=== PATIENT | female | born 1975 | race Caucasian/White ===

== ENCOUNTER 2019-09-05 21:35 | Inpatient (IN) | payer MEDICAID, OTHER ==
[~2019-09-05] VITALS: Ht 162.6 cm; Wt 94.7 kg
[~2019-09-05 21:35] MED LIST: ASPI81 PO; FURO20 PO; KDUR10 PO; LISI-660 PO; MULT1TAB79 PO; OXYC-601 PO; PANT40TA25 PO; RISP1 PO; TOPI25 PO
[2019-09-05 22:26] LABS: GLUCOSE,POINT OF CARE 137 MG/DL (70-110)
[2019-09-05 22:31] LABS: BASOPHILS % (AUTO) 0.6 % (0.0-2.0); HEMATOCRIT 39.2 % (36-46); LYMPHOCYTES % (AUTO) 39.1 % (22.0-44.0); MEAN CORPUSCULAR HEMOGLOBIN 30.1 pg (26.0-34.0); MEAN CORPUSCULAR HGB CONC 33.1 G/dL (31.0-37.0); MEAN CORPUSCULAR VOLUME 91 fL (80-100); MONOCYTES # (AUTO) 0.3 K/uL (0.1-1.0); MONOCYTES % (AUTO) 5.9 % (2.0-9.0); NEUTROPHILS # (AUTO) 2.7 K/uL (1.8-7.7); NEUTROPHILS % (AUTO) 52.4 % (40.0-70.0); PLATELET COUNT (AUTO) 256 K/uL (150-450); RED BLOOD CELL COUNT(AUTO) 4.31 MIL/uL (4.00-5.20); RED CELL DISTRIBUTION WIDTH 12.5 % (11.5-14.5)
[2019-09-05 22:38] LABS: ANION GAP 10 mmol/L (8-16); CALCIUM, TOTAL 8.6 mg/dL (8.8-10.5); CARBON DIOXIDE 23 mmol/L (22-29); CHLORIDE 105 mmol/L (98-107); CREATININE 0.55 mg/dL (0.60-1.30); GLOMERULAR FILTR. RATE CALC > 60 mL/min (>60); GLUCOSE,RANDOM 146 mg/dL (70-110); POTASSIUM 3.7 mmol/L (3.5-5.1); SODIUM SERUM 138 mmol/L (136-145); UREA NITROGEN, BLOOD 13 mg/dL (7-18)
[2019-09-05 22:49] LABS: ALANINE AMINOTRANSFERASE 108 U/L (12-78); ALBUMIN 3.6 g/dL (3.4-5.0); ALKALINE PHOSPHATASE 110 U/L (46-116); ASPARTATE AMINOTRANSFERASE 174 U/L (15-37); BILIRUBIN,TOTAL 0.3 mg/dL (0.1-1.0); HCG,QUANTITATIVE 1 mIU/mL (0-6); TOTAL PROTEIN, SERUM 7.8 g/dL (6.4-8.2)
[2019-09-06 03:02] LABS: APPEARANCE,URINE CLOUDY (CLEAR); BILIRUBIN,URINE NEGATIVE (NEGATIVE); GLUCOSE, URINE (UA) NEGATIVE (NEGATIVE); KETONES,URINE NEGATIVE (NEGATIVE); LEUKOCYTE ESTERASE ,URINE MODERATE (NEGATIVE); NITRATE,URINE NEGATIVE (NEGATIVE); OCCULT BLOOD,URINE NEGATIVE (NEGATIVE); PH,URINE 5.5 (5.0-8.0); PROTEIN,URINE NEGATIVE (NEGATIVE)
[2019-09-06 03:09] LABS: AMPHET/METH SCREEN,URINE POSITIVE (NEGATIVE); BARBITURATE SCREEN, URINE NEGATIVE (NEGATIVE); BENZODIAZEPINES SCREEN,URINE NEGATIVE (NEGATIVE); CANNABINOID SCREEN,URINE NEGATIVE (NEGATIVE); COCAINE SCREEN,URINE NEGATIVE (NEGATIVE); METHADONE SCREEN, URINE NEGATIVE (NEGATIVE); OPIATE SCREEN,URINE NEGATIVE (NEGATIVE)
[2019-09-06 03:10] LABS: PHENCYCLIDINE SCREEN,URINE NEGATIVE (NEGATIVE)
[2019-09-06 03:26] LABS: BACTERIA,URINE Many /HPF (None Seen); RBC,URINE 0-2 /HPF (0-2); SQUAMOUS EPITHELIAL CELL,UR Few /LPF (None Seen)
[2019-09-06] MEDS ORDERED: CloNIDine HCL 0.1 MG TABLET PO PRN (06:15)
[2019-09-06] MEDS ORDERED: ALBUTEROL SULFATE HFA 90 MCG/PUFF 8 GM INHALER IH PRN (06:15)
[2019-09-06] MEDS ORDERED: MAGNESIUM HYDROXIDE SUSPENSION 30 ML UDCUP PO PRN (06:15)
[2019-09-06] MEDS ORDERED: ACETAMINOPHEN 325 MG TABLET PO PRN (06:15)
[2019-09-06] MEDS ORDERED: LOPERAMIDE HCL 2 MG CAPSULE PO PRN (06:15)
[2019-09-06] MEDS ORDERED: MAG HYDROX/AL HYDROX/SIMETH ES 30 ML SUSPENSION UDCUP PO PRN (06:15)
[2019-09-06] MEDS ORDERED: ONDANSETRON HCL 4 MG TABLET PO PRN (06:15)
[2019-09-06] MEDS ORDERED: PETROLATUM,WHITE 28 GM JELLY TP PRN (06:15)
[2019-09-06] MEDS ORDERED: NICOTINE 14 MG/24 HOUR PATCH TD PRN (06:15)
[2019-09-06] MEDS ORDERED: GuaiFENesin/D-METHORPHAN [SUGAR-FREE] 200-20MG/10 ML SYRUP UDCUP PO PRN (06:15)
[2019-09-06 06:51] LABS: GLUCOSE,POINT OF CARE 86 MG/DL (70-110)
[2019-09-06] MEDS: IBUPROFEN 400 MG TABLET PO PRN ×2 (08:55→20:00)
[2019-09-06 13:44] VITALS: BP 135/79
[2019-09-06] MEDS ORDERED: INFLUENZA VIRUS VACCINE QVS 2019-20 (3YR+)/PF 60 MCG/0.5 ML SYRINGE IM ONE (14:45)
[2019-09-06 16:00] VITALS: BP 104/62
[2019-09-06 20:00] VITALS: BP 124/76
[2019-09-06] MEDS: ZOLPIDEM TARTRATE 10 MG TABLET PO PRN (20:54)
[2019-09-07] VITALS (7 sets, daily range): BP systolic 99–125; BP diastolic 63–86
[2019-09-07 08:31] LABS: THYROID STIMULATING HORMONE 2.67 uIU/mL (0.36-3.74)
[2019-09-07 08:44] LABS: HEMOGLOBIN A1C 6.9 % (4.5-6.2)
[2019-09-07] MEDS: LORazepam 2 MG TABLET PO PRN (11:49)
[2019-09-07] MEDS ORDERED: LORazepam 2 MG TABLET PO PRN (12:15)
[2019-09-07] MEDS: OLANZapine 5 MG TABLET PO SCH (18:29)
[2019-09-08] MEDS ORDERED: LORazepam 2 MG TABLET PO PRN (07:00)
[2019-09-08 08:00] VITALS: BP 110/62
[2019-09-08] MEDS: FOLIC ACID 1 MG TABLET PO SCH (08:28)
[2019-09-08] MEDS: THIAMINE HCL 100 MG TABLET PO SCH (08:28)
[2019-09-08] MEDS: OLANZapine 5 MG TABLET PO SCH ×2 (08:28→17:56)
[2019-09-08] MEDS: LORazepam 2 MG TABLET PO SCH ×4 (08:28→20:34)
[2019-09-08 08:30] VITALS: BP 110/62
[2019-09-08 12:36] VITALS: BP 110/60
[2019-09-08 16:05] VITALS: BP 125/89
[2019-09-08 16:42] VITALS: BP 125/98
[2019-09-09 06:43] VITALS: BP 115/73
[2019-09-09 08:00] VITALS: BP 125/82
[2019-09-09] MEDS: OLANZapine 5 MG TABLET PO SCH ×2 (08:13→16:19)
[2019-09-09] MEDS: LORazepam 2 MG TABLET PO SCH ×4 (08:14→20:27)
[2019-09-09] MEDS: THIAMINE HCL 100 MG TABLET PO SCH (08:14)
[2019-09-09] MEDS: FOLIC ACID 1 MG TABLET PO SCH (08:14)
[2019-09-09 12:41] VITALS: BP 133/71
[2019-09-10 00:42] VITALS: BP 122/63
[2019-09-10] MEDS ORDERED: LORazepam 1 MG TABLET PO PRN (07:00)
[2019-09-10 08:44] VITALS: BP 122/73
[2019-09-10] MEDS: OLANZapine 5 MG TABLET PO SCH ×2 (09:20→16:49)
[2019-09-10] MEDS: FOLIC ACID 1 MG TABLET PO SCH (09:20)
[2019-09-10] MEDS: LORazepam 1 MG TABLET PO SCH ×4 (09:20→20:40)
[2019-09-10] MEDS: THIAMINE HCL 100 MG TABLET PO SCH (09:20)
[2019-09-10 12:11] VITALS: BP 100/65
[2019-09-10] MEDS: BuPROPion HCL XL 150 MG ER TABLET PO SCH (15:13)
[2019-09-10 16:00] VITALS: BP 107/56
[2019-09-10] MEDS: GABAPENTIN 300 MG CAPSULE PO SCH (16:49)
[2019-09-10] MEDS: ZOLPIDEM TARTRATE 10 MG TABLET PO PRN (20:40)
[2019-09-11 06:55] VITALS: BP 118/74
[2019-09-11] MEDS ORDERED: LORazepam 1 MG TABLET PO PRN (07:00)
[2019-09-11 08:00] VITALS: BP 123/74
[2019-09-11] MEDS: BuPROPion HCL XL 150 MG ER TABLET PO SCH (08:28)
[2019-09-11] MEDS: THIAMINE HCL 100 MG TABLET PO SCH (08:28)
[2019-09-11] MEDS: GABAPENTIN 300 MG CAPSULE PO SCH ×2 (08:28→16:05)
[2019-09-11] MEDS: OLANZapine 5 MG TABLET PO SCH ×2 (08:28→16:05)
[2019-09-11] MEDS: FOLIC ACID 1 MG TABLET PO SCH (08:28)
[2019-09-11 13:53] VITALS: BP 115/76
[2019-09-11] MEDS: LORazepam 2 MG TABLET PO PRN (16:33)
[2019-09-11] MEDS: ZOLPIDEM TARTRATE 10 MG TABLET PO PRN (20:30)
[2019-09-11 21:46] VITALS: BP 119/71
[2019-09-12] MEDS: GABAPENTIN 300 MG CAPSULE PO SCH ×2 (08:59→15:50)
[2019-09-12] MEDS: THIAMINE HCL 100 MG TABLET PO SCH (08:59)
[2019-09-12] MEDS: FOLIC ACID 1 MG TABLET PO SCH (08:59)
[2019-09-12] MEDS: BuPROPion HCL XL 150 MG ER TABLET PO SCH (08:59)
[2019-09-12] MEDS: OLANZapine 5 MG TABLET PO SCH ×2 (09:01→15:50)
[2019-09-12 09:10] VITALS: BP 102/63
[2019-09-12] MEDS: IBUPROFEN 400 MG TABLET PO PRN (14:59)
[2019-09-12 15:59] VITALS: BP 112/69
[2019-09-12 16:57] VITALS: BP 106/61
[2019-09-12] MEDS: ZOLPIDEM TARTRATE 10 MG TABLET PO PRN (21:34)
[2019-09-13 01:40] VITALS: BP 108/75
[2019-09-13] MEDS: HALOPERIDOL 5 MG TABLET PO PRN (01:47)
[2019-09-13] MEDS: LORazepam 2 MG TABLET PO PRN ×2 (01:47→16:32)
[2019-09-13] MEDS: THIAMINE HCL 100 MG TABLET PO SCH (08:10)
[2019-09-13] MEDS: OLANZapine 5 MG TABLET PO SCH ×2 (08:10→16:31)
[2019-09-13] MEDS: FOLIC ACID 1 MG TABLET PO SCH (08:10)
[2019-09-13] MEDS: GABAPENTIN 300 MG CAPSULE PO SCH ×2 (08:10→16:32)
[2019-09-13] MEDS: BuPROPion HCL XL 150 MG ER TABLET PO SCH (08:10)
[2019-09-13 20:37] LABS: APPEARANCE,URINE CLOUDY (CLEAR); BILIRUBIN,URINE NEGATIVE (NEGATIVE); GLUCOSE, URINE (UA) NEGATIVE (NEGATIVE); KETONES,URINE NEGATIVE (NEGATIVE); LEUKOCYTE ESTERASE ,URINE SMALL (NEGATIVE); NITRATE,URINE POSITIVE (NEGATIVE); OCCULT BLOOD,URINE NEGATIVE (NEGATIVE); PROTEIN,URINE NEGATIVE (NEGATIVE); UROBILINOGEN,URINE 0.2 mg/dL (<=1.0)
[2019-09-13] MEDS: ZOLPIDEM TARTRATE 10 MG TABLET PO PRN (20:57)
[2019-09-13 21:07] LABS: BACTERIA,URINE Many /HPF (None Seen); RBC,URINE None Seen /HPF (0-2)
[2019-09-13 21:08] LABS: AMORPHOUS SEDIMENT,UR Moderate /LPF (None Seen); SQUAMOUS EPITHELIAL CELL,UR Few /LPF (None Seen); WBC,URINE 0-2 /HPF (0-5)
[2019-09-13 22:32] VITALS: BP 99/62
[2019-09-14] MEDS: LORazepam 2 MG TABLET PO PRN ×2 (00:34→22:01)
[2019-09-14] MEDS: HALOPERIDOL 5 MG TABLET PO PRN ×2 (00:34→22:01)
[2019-09-14 00:36] VITALS: BP 110/76
[2019-09-14] MEDS: THIAMINE HCL 100 MG TABLET PO SCH (09:04)
[2019-09-14] MEDS: GABAPENTIN 300 MG CAPSULE PO SCH ×2 (09:04→16:52)
[2019-09-14] MEDS: FOLIC ACID 1 MG TABLET PO SCH (09:04)
[2019-09-14] MEDS: BuPROPion HCL XL 150 MG ER TABLET PO SCH (09:04)
[2019-09-14] MEDS: OLANZapine 5 MG TABLET PO SCH ×2 (09:04→16:52)
[2019-09-14 13:04] VITALS: BP 115/60
[2019-09-14] MEDS: TraZODone HCL 50 MG TABLET PO SCH (20:14)
[2019-09-14] MEDS: CIPROFLOXACIN HCL 500 MG TABLET PO SCH (21:54)
[2019-09-14 22:18] VITALS: BP 118/68
[2019-09-14 22:24] VITALS: BP 110/68
[2019-09-15] MEDS: GABAPENTIN 300 MG CAPSULE PO SCH ×2 (08:18→16:20)
[2019-09-15] MEDS: BuPROPion HCL XL 150 MG ER TABLET PO SCH (08:18)
[2019-09-15] MEDS: FOLIC ACID 1 MG TABLET PO SCH (08:18)
[2019-09-15] MEDS: THIAMINE HCL 100 MG TABLET PO SCH (08:18)
[2019-09-15] MEDS: OLANZapine 5 MG TABLET PO SCH ×2 (08:18→16:20)
[2019-09-15] MEDS: CIPROFLOXACIN HCL 500 MG TABLET PO SCH ×2 (09:11→17:03)
[2019-09-15 09:34] VITALS: BP 111/66
[2019-09-15] MEDS: DOCUSATE SODIUM 100 MG CAPSULE PO PRN (16:20)
[2019-09-15] MEDS: IBUPROFEN 400 MG TABLET PO PRN (16:20)
[2019-09-15] MEDS: LORazepam 2 MG TABLET PO PRN ×2 (16:20→20:19)
[2019-09-15 16:21] VITALS: BP 115/68
[2019-09-15 17:53] VITALS: BP 139/79
[2019-09-15] MEDS: TraZODone HCL 50 MG TABLET PO SCH (20:19)
[2019-09-15] MEDS: HALOPERIDOL 5 MG TABLET PO PRN (23:08)
[2019-09-16 08:49] VITALS: BP 112/71
[2019-09-16] MEDS: THIAMINE HCL 100 MG TABLET PO SCH (09:24)
[2019-09-16] MEDS: OLANZapine 5 MG TABLET PO SCH ×2 (09:24→16:16)
[2019-09-16] MEDS: BuPROPion HCL XL 150 MG ER TABLET PO SCH (09:24)
[2019-09-16] MEDS: CIPROFLOXACIN HCL 500 MG TABLET PO SCH ×2 (09:24→16:16)
[2019-09-16] MEDS: FOLIC ACID 1 MG TABLET PO SCH (09:24)
[2019-09-16] MEDS: GABAPENTIN 300 MG CAPSULE PO SCH ×2 (09:25→16:16)
[2019-09-16] MEDS: LORazepam 2 MG TABLET PO PRN (14:00)
[2019-09-16 17:09] VITALS: BP 118/79
[2019-09-16] MEDS: TraMADol HCL 50 MG TABLET PO PRN (17:16)
[2019-09-16] MEDS ORDERED: TEMAZEPAM 15 MG CAPSULE PO SCH (21:00)
[2019-09-17 01:40] VITALS: BP 109/75
[2019-09-17] MEDS: LORazepam 2 MG TABLET PO PRN ×2 (01:42→09:23)
[2019-09-17] MEDS: HALOPERIDOL 5 MG TABLET PO PRN ×2 (03:18→22:40)
[2019-09-17 08:52] VITALS: BP 121/81
[2019-09-17] MEDS: OLANZapine 5 MG TABLET PO SCH ×2 (09:17→16:05)
[2019-09-17] MEDS: THIAMINE HCL 100 MG TABLET PO SCH (09:17)
[2019-09-17] MEDS: CIPROFLOXACIN HCL 500 MG TABLET PO SCH ×2 (09:17→16:05)
[2019-09-17] MEDS: BuPROPion HCL XL 150 MG ER TABLET PO SCH (09:17)
[2019-09-17] MEDS: FOLIC ACID 1 MG TABLET PO SCH (09:17)
[2019-09-17] MEDS: GABAPENTIN 300 MG CAPSULE PO SCH ×2 (09:17→16:05)
[2019-09-17] MEDS: DICLOFENAC SODIUM 1% 100 GM GEL [2GM] TP PRN ×2 (09:24→21:19)
[2019-09-17] MEDS: BusPIRone HCL 10 MG TABLET PO SCH ×2 (11:31→16:05)
[2019-09-17 16:00] VITALS: BP 111/63
[2019-09-17 20:16] VITALS: BP 128/88
[2019-09-17] MEDS: IBUPROFEN 400 MG TABLET PO PRN (20:18)
[2019-09-17] MEDS: DOCUSATE SODIUM 100 MG CAPSULE PO PRN (20:21)
[2019-09-17] MEDS ORDERED: ChlorproMAZINE HCL 50 MG TABLET PO SCH (21:00)
[2019-09-18 00:13] VITALS: BP 120/77
[2019-09-18] MEDS: TraMADol HCL 50 MG TABLET PO PRN ×2 (00:22→16:05)
[2019-09-18] MEDS: BuPROPion HCL XL 150 MG ER TABLET PO SCH (08:40)
[2019-09-18] MEDS: BusPIRone HCL 10 MG TABLET PO SCH ×2 (08:41→16:05)
[2019-09-18] MEDS: FOLIC ACID 1 MG TABLET PO SCH (08:41)
[2019-09-18] MEDS: GABAPENTIN 300 MG CAPSULE PO SCH ×2 (08:41→16:05)
[2019-09-18] MEDS: OLANZapine 5 MG TABLET PO SCH ×2 (08:41→16:05)
[2019-09-18] MEDS: THIAMINE HCL 100 MG TABLET PO SCH (08:41)
[2019-09-18] MEDS: CIPROFLOXACIN HCL 500 MG TABLET PO SCH ×2 (08:41→16:05)
[2019-09-18 09:35] VITALS: BP 126/80
[2019-09-18] MEDS ORDERED: SUMAtriptan SUCCINATE 25 MG TABLET PO PRN (11:00)
[2019-09-18] MEDS ORDERED: CYCLOBENZAPRINE HCL 10 MG TABLET PO PRN (11:00)
[2019-09-18 16:00] VITALS: BP 120/67
[2019-09-18] MEDS: DICLOFENAC SODIUM 1% 100 GM GEL [2GM] TP PRN (16:07)
[2019-09-18] MEDS: IBUPROFEN 400 MG TABLET PO PRN (17:07)
[2019-09-18] MEDS ORDERED: TraZODone HCL 50 MG TABLET PO SCH (21:00)
[2019-09-19] MEDS: BusPIRone HCL 10 MG TABLET PO SCH (08:35)
[2019-09-19] MEDS: FOLIC ACID 1 MG TABLET PO SCH (08:35)
[2019-09-19] MEDS: CIPROFLOXACIN HCL 500 MG TABLET PO SCH (08:35)
[2019-09-19] MEDS: THIAMINE HCL 100 MG TABLET PO SCH (08:36)
[2019-09-19] MEDS: BuPROPion HCL XL 150 MG ER TABLET PO SCH (08:36)
[2019-09-19] MEDS: OLANZapine 5 MG TABLET PO SCH (08:36)
[2019-09-19] MEDS: GABAPENTIN 300 MG CAPSULE PO SCH (08:36)
[2019-09-19 08:51] VITALS: BP 125/79
[2019-09-19] MEDS ORDERED: BUPR-93 PO (09:14)
[2019-09-19] MEDS ORDERED: BUSP10TA23 PO (09:14)
[2019-09-19] MEDS ORDERED: GABA-531 PO (09:14)
[2019-09-19] MEDS ORDERED: TRAZ-252 PO (09:14)
[2019-09-19] MEDS ORDERED: OLAN5TAB2 PO (09:14)
[2019-09-19] MEDS: DOCUSATE SODIUM 100 MG CAPSULE PO PRN (10:14)
[2019-09-19] MEDS: TraMADol HCL 50 MG TABLET PO PRN (10:49)
[2019-09-19] MEDS: DICLOFENAC SODIUM 1% 100 GM GEL [2GM] TP PRN (10:50)
== END 2019-09-19 13:45 | disposition home or self-care (01) | DRG 750 ==
LOC: EDBD → EMS 21:35 → 3EC 09-06 10:49 → 3EI 09-15 13:54
PROVIDERS: ADMIT Psychiatry & Neurology Psychiatry; ATTEND Psychiatry & Neurology Psychiatry
DX: F20.3 Undifferentiated schizophrenia (principal); R45.851 Suicidal ideations; F20.5 Residual schizophrenia; E11.9 Type 2 diabetes mellitus without complications; E03.9 Hypothyroidism, unspecified; F10.10 Alcohol abuse, uncomplicated; F15.10 Other stimulant abuse, uncomplicated; G43.909 Migraine, unspecified, not intractable, without status migrainosus; G47.00 Insomnia, unspecified; I10 Essential (primary) hypertension; K59.00 Constipation, unspecified; R45.850 Homicidal ideations; Z59.0 Homelessness; Z79.899 Other long term (current) drug therapy; Z85.41 Personal history of malignant neoplasm of cervix uteri; Z85.42 Personal history of malignant neoplasm of other parts of uterus; Z85.43 Personal history of malignant neoplasm of ovary; Z90.710 Acquired absence of both cervix and uterus; Z91.5 Personal history of self-harm
CPT/HCPCS: 83036; 84443; 87086; 93005; 94660; G0480

== ENCOUNTER 2019-09-22 17:01 | Inpatient (IN) | payer MEDICAID ==
[~2019-09-22] VITALS: Ht 162.6 cm; Wt 99.8 kg
[~2019-09-22 17:01] MED LIST changes: -ASPI81 PO; +BUPR-93 PO; +BUSP10TA23 PO; -FURO20 PO; +GABA-531 PO; -KDUR10 PO; -LISI-660 PO; -MULT1TAB79 PO; +OLAN5TAB2 PO; -OXYC-601 PO; -PANT40TA25 PO; -RISP1 PO; -TOPI25 PO; +TRAZ-252 PO
[2019-09-22 17:24] LABS: GLUCOSE,POINT OF CARE 189 MG/DL (70-110)
[2019-09-22 18:27] LABS: BASOPHILS % (AUTO) 0.6 % (0.0-2.0); EOSINOPHILS % (AUTO) 1.4 % (1.0-6.0); HEMATOCRIT 37.8 % (36-46); HEMOGLOBIN 12.6 g/dL (12.0-16.0); LYMPHOCYTES # (AUTO) 3.5 K/uL (1.0-4.8); LYMPHOCYTES % (AUTO) 44.9 % (22.0-44.0); MEAN CORPUSCULAR HEMOGLOBIN 29.4 pg (26.0-34.0); MEAN CORPUSCULAR HGB CONC 33.4 G/dL (31.0-37.0); MEAN CORPUSCULAR VOLUME 88 fL (80-100); MONOCYTES # (AUTO) 0.7 K/uL (0.1-1.0); MONOCYTES % (AUTO) 8.9 % (2.0-9.0); NEUTROPHILS # (AUTO) 3.5 K/uL (1.8-7.7); NEUTROPHILS % (AUTO) 44.2 % (40.0-70.0); PLATELET COUNT (AUTO) 305 K/uL (150-450); RED BLOOD CELL COUNT(AUTO) 4.29 MIL/uL (4.00-5.20)
[2019-09-22] MEDS ORDERED: ACETAMINOPHEN 500 MG TABLET PO ONE (18:30)
[2019-09-22 18:43] LABS: ANION GAP 14 mmol/L (8-16); CALCIUM, TOTAL 8.3 mg/dL (8.8-10.5); CARBON DIOXIDE 23 mmol/L (22-29); CHLORIDE 107 mmol/L (98-107); GLOMERULAR FILTR. RATE CALC > 60 mL/min (>60); GLUCOSE,RANDOM 123 mg/dL (70-110); POTASSIUM 3.6 mmol/L (3.5-5.1); SODIUM SERUM 144 mmol/L (136-145); UREA NITROGEN, BLOOD 16 mg/dL (7-18)
[2019-09-22 18:49] LABS: ALANINE AMINOTRANSFERASE 88 U/L (12-78); ALBUMIN 3.5 g/dL (3.4-5.0); ALKALINE PHOSPHATASE 101 U/L (46-116); ASPARTATE AMINOTRANSFERASE 62 U/L (15-37); BILIRUBIN,TOTAL 0.3 mg/dL (0.1-1.0); TOTAL PROTEIN, SERUM 7.7 g/dL (6.4-8.2)
[2019-09-22 18:57] LABS: AMPHET/METH SCREEN,URINE POSITIVE (NEGATIVE); BARBITURATE SCREEN, URINE NEGATIVE (NEGATIVE); BENZODIAZEPINES SCREEN,URINE NEGATIVE (NEGATIVE); CANNABINOID SCREEN,URINE NEGATIVE (NEGATIVE); COCAINE SCREEN,URINE NEGATIVE (NEGATIVE); METHADONE SCREEN, URINE NEGATIVE (NEGATIVE); OPIATE SCREEN,URINE NEGATIVE (NEGATIVE)
[2019-09-22 18:59] LABS: PHENCYCLIDINE SCREEN,URINE NEGATIVE (NEGATIVE)
[2019-09-22] MEDS ORDERED: LORazepam 2 MG TABLET PO ONE (19:15)
[2019-09-22] MEDS ORDERED: ZOLPIDEM TARTRATE 10 MG TABLET PO PRN (22:45)
[2019-09-22] MEDS ORDERED: LORazepam 2 MG TABLET PO PRN (22:45)
[2019-09-23] VITALS (7 sets, daily range): BP systolic 107–130; BP diastolic 60–77
[2019-09-23] MEDS ORDERED: PNEUMOCOCCAL VACCINE POLYVALENT 0.5 ML VIAL [PPSV23] IM ONE (04:30)
[2019-09-23] MEDS ORDERED: INFLUENZA VIRUS VACCINE QVS 2019-20 (3YR+)/PF 60 MCG/0.5 ML SYRINGE IM ONE (04:30)
[2019-09-23 06:59] LABS: CHOL/HDL RATIO 2.1 (3.9-5.7)
[2019-09-23] MEDS: HALOPERIDOL 5 MG TABLET PO PRN (08:08)
[2019-09-23] MEDS ORDERED: IBUPROFEN 400 MG TABLET PO PRN ×2 (11:00→11:45)
[2019-09-23] MEDS ORDERED: ACETAMINOPHEN 325 MG TABLET PO PRN ×2 (11:00→11:45)
[2019-09-23] MEDS ORDERED: TEMAZEPAM 15 MG CAPSULE PO PRN (11:30)
[2019-09-23] MEDS ORDERED: LORazepam 2 MG TABLET PO PRN (11:30)
[2019-09-23] MEDS: DICLOFENAC SODIUM 1% 100 GM GEL [2GM] TP PRN (11:33)
[2019-09-23] MEDS: BuPROPion HCL XL 150 MG ER TABLET PO SCH (11:36)
[2019-09-23] MEDS ORDERED: MAG HYDROX/AL HYDROX/SIMETH ES 30 ML SUSPENSION UDCUP PO PRN (11:45)
[2019-09-23] MEDS ORDERED: ONDANSETRON HCL 4 MG TABLET PO PRN (11:45)
[2019-09-23] MEDS ORDERED: NICOTINE 14 MG/24 HOUR PATCH TD PRN (11:45)
[2019-09-23] MEDS ORDERED: PETROLATUM,WHITE 28 GM JELLY TP PRN (11:45)
[2019-09-23] MEDS ORDERED: LOPERAMIDE HCL 2 MG CAPSULE PO PRN (11:45)
[2019-09-23] MEDS ORDERED: ALBUTEROL SULFATE HFA 90 MCG/PUFF 8 GM INHALER IH PRN (11:45)
[2019-09-23] MEDS ORDERED: CloNIDine HCL 0.1 MG TABLET PO PRN (11:45)
[2019-09-23] MEDS: OLANZapine 5 MG TABLET PO SCH (17:57)
[2019-09-23] MEDS: BusPIRone HCL 10 MG TABLET PO SCH (17:57)
[2019-09-23] MEDS: GABAPENTIN 300 MG CAPSULE PO SCH (17:57)
[2019-09-23] MEDS: FOLIC ACID 1 MG TABLET PO SCH (17:57)
[2019-09-23] MEDS: TraZODone HCL 50 MG TABLET PO SCH (20:30)
[2019-09-24 03:27] VITALS: BP 116/72
[2019-09-24] MEDS ORDERED: LORazepam 2 MG TABLET PO PRN (07:00)
[2019-09-24 07:27] VITALS: BP 113/50
[2019-09-24 08:10] VITALS: BP 113/50
[2019-09-24] MEDS: BusPIRone HCL 10 MG TABLET PO SCH ×2 (08:27→16:20)
[2019-09-24] MEDS: OLANZapine 5 MG TABLET PO SCH ×2 (08:27→16:20)
[2019-09-24] MEDS: GABAPENTIN 300 MG CAPSULE PO SCH ×2 (08:27→16:20)
[2019-09-24] MEDS: BuPROPion HCL XL 150 MG ER TABLET PO SCH (08:27)
[2019-09-24] MEDS: FOLIC ACID 1 MG TABLET PO SCH (08:28)
[2019-09-24] MEDS: LORazepam 2 MG TABLET PO SCH ×4 (08:28→20:02)
[2019-09-24] MEDS: DICLOFENAC SODIUM 1% 100 GM GEL [2GM] TP PRN (08:29)
[2019-09-24 10:36] LABS: HEMOGLOBIN A1C 6.6 % (4.5-6.2)
[2019-09-24 10:53] LABS: THYROID STIMULATING HORMONE 2.23 uIU/mL (0.36-3.74)
[2019-09-24 11:44] VITALS: BP 135/90
[2019-09-24 13:13] VITALS: BP 131/79
[2019-09-24] MEDS: HALOPERIDOL 5 MG TABLET PO PRN ×2 (13:16→20:02)
[2019-09-24] MEDS: SUMAtriptan SUCCINATE 25 MG TABLET PO PRN (13:17)
[2019-09-24] MEDS: THIAMINE HCL 100 MG TABLET PO SCH (15:23)
[2019-09-24] MEDS: TraMADol HCL 50 MG TABLET PO PRN (17:49)
[2019-09-24] MEDS: TraZODone HCL 50 MG TABLET PO SCH (20:02)
[2019-09-24 22:45] VITALS: BP 127/89
[2019-09-25] MEDS: BuPROPion HCL XL 150 MG ER TABLET PO SCH (08:01)
[2019-09-25] MEDS: OLANZapine 5 MG TABLET PO SCH ×2 (08:01→16:24)
[2019-09-25] MEDS: GABAPENTIN 300 MG CAPSULE PO SCH ×2 (08:01→16:26)
[2019-09-25] MEDS: LORazepam 2 MG TABLET PO SCH ×4 (08:01→20:18)
[2019-09-25] MEDS: THIAMINE HCL 100 MG TABLET PO SCH (08:01)
[2019-09-25] MEDS: BusPIRone HCL 10 MG TABLET PO SCH ×2 (08:01→16:25)
[2019-09-25] MEDS: FOLIC ACID 1 MG TABLET PO SCH (08:01)
[2019-09-25] MEDS: DICLOFENAC SODIUM 1% 100 GM GEL [2GM] TP PRN (08:10)
[2019-09-25 09:56] VITALS: BP 141/99
[2019-09-25 09:59] VITALS: BP 141/99
[2019-09-25 16:37] VITALS: BP 124/79
[2019-09-25 18:20] VITALS: BP 138/82
[2019-09-25 19:59] VITALS: BP 129/84
[2019-09-25] MEDS: TraMADol HCL 50 MG TABLET PO PRN (19:59)
[2019-09-25] MEDS: TraZODone HCL 50 MG TABLET PO SCH (20:18)
[2019-09-26] MEDS ORDERED: LORazepam 1 MG TABLET PO PRN (07:00)
[2019-09-26 08:06] VITALS: BP 113/70
[2019-09-26 08:07] VITALS: BP 113/70
[2019-09-26] MEDS: BusPIRone HCL 10 MG TABLET PO SCH ×2 (08:56→16:23)
[2019-09-26] MEDS: BuPROPion HCL XL 150 MG ER TABLET PO SCH (08:56)
[2019-09-26] MEDS: OLANZapine 5 MG TABLET PO SCH ×2 (08:56→16:23)
[2019-09-26] MEDS: GABAPENTIN 300 MG CAPSULE PO SCH ×2 (08:56→16:23)
[2019-09-26] MEDS: THIAMINE HCL 100 MG TABLET PO SCH (08:56)
[2019-09-26] MEDS: FOLIC ACID 1 MG TABLET PO SCH (08:56)
[2019-09-26] MEDS: LORazepam 1 MG TABLET PO SCH ×4 (08:57→20:30)
[2019-09-26 10:30] VITALS: BP 113/70
[2019-09-26] MEDS: TraMADol HCL 50 MG TABLET PO PRN (10:30)
[2019-09-26 16:15] VITALS: BP 119/78
[2019-09-26] MEDS: DICLOFENAC SODIUM 1% 100 GM GEL [2GM] TP PRN (16:25)
[2019-09-26 16:36] VITALS: BP 123/76
[2019-09-26 17:36] VITALS: BP 123/76
[2019-09-26] MEDS: TraZODone HCL 50 MG TABLET PO SCH (20:30)
[2019-09-27] MEDS ORDERED: LORazepam 1 MG TABLET PO PRN (07:00)
[2019-09-27 08:00] VITALS: BP 146/86
[2019-09-27] MEDS: FOLIC ACID 1 MG TABLET PO SCH (08:31)
[2019-09-27] MEDS: GABAPENTIN 300 MG CAPSULE PO SCH ×2 (08:31→16:22)
[2019-09-27] MEDS: THIAMINE HCL 100 MG TABLET PO SCH (08:31)
[2019-09-27] MEDS: BuPROPion HCL XL 150 MG ER TABLET PO SCH (08:31)
[2019-09-27] MEDS: OLANZapine 5 MG TABLET PO SCH ×2 (08:31→16:21)
[2019-09-27] MEDS: BusPIRone HCL 10 MG TABLET PO SCH ×2 (08:31→16:21)
[2019-09-27] MEDS: DICLOFENAC SODIUM 1% 100 GM GEL [2GM] TP PRN (08:35)
[2019-09-27] MEDS: MAGNESIUM HYDROXIDE SUSPENSION 30 ML UDCUP PO PRN (08:35)
[2019-09-27 12:03] VITALS: BP 138/82
[2019-09-27] MEDS: TraMADol HCL 50 MG TABLET PO PRN ×2 (12:03→23:53)
[2019-09-27] MEDS ORDERED: PHENYLEPHRINE/SHK LV/MIN OIL/PET 57 GM OINTMENT TP PRN (14:15)
[2019-09-27] MEDS: SUMAtriptan SUCCINATE 25 MG TABLET PO PRN (16:22)
[2019-09-27 16:24] VITALS: BP 114/69
[2019-09-27 20:30] LABS: APPEARANCE,URINE CLEAR (CLEAR); BILIRUBIN,URINE NEGATIVE (NEGATIVE); GLUCOSE, URINE (UA) NEGATIVE (NEGATIVE); KETONES,URINE NEGATIVE (NEGATIVE); LEUKOCYTE ESTERASE ,URINE NEGATIVE (NEGATIVE); NITRATE,URINE NEGATIVE (NEGATIVE); OCCULT BLOOD,URINE NEGATIVE (NEGATIVE); PROTEIN,URINE NEGATIVE (NEGATIVE); UROBILINOGEN,URINE 0.2 mg/dL (<=1.0)
[2019-09-27] MEDS: ChlorproMAZINE HCL 50 MG TABLET PO SCH (20:38)
[2019-09-27 23:50] VITALS: BP 107/73
[2019-09-28] MEDS: DICLOFENAC SODIUM 1% 100 GM GEL [2GM] TP PRN ×2 (00:18→13:52)
[2019-09-28] MEDS: MAGNESIUM HYDROXIDE SUSPENSION 30 ML UDCUP PO PRN (08:02)
[2019-09-28] MEDS: DOCUSATE SODIUM 100 MG CAPSULE PO PRN ×2 (08:02→15:11)
[2019-09-28] MEDS: OLANZapine 5 MG TABLET PO SCH ×2 (08:03→17:00)
[2019-09-28] MEDS: GABAPENTIN 300 MG CAPSULE PO SCH ×2 (08:03→17:00)
[2019-09-28] MEDS: BuPROPion HCL XL 150 MG ER TABLET PO SCH (08:03)
[2019-09-28] MEDS: BusPIRone HCL 10 MG TABLET PO SCH ×2 (08:03→17:00)
[2019-09-28] MEDS: FOLIC ACID 1 MG TABLET PO SCH (08:03)
[2019-09-28] MEDS: THIAMINE HCL 100 MG TABLET PO SCH (08:03)
[2019-09-28] MEDS: HALOPERIDOL 5 MG TABLET PO PRN (08:16)
[2019-09-28] MEDS: NALTREXONE HCL 50 MG TABLET PO SCH (12:41)
[2019-09-28 13:53] VITALS: BP 120/79
[2019-09-28] MEDS: TraMADol HCL 50 MG TABLET PO PRN (13:53)
[2019-09-28] MEDS: ChlorproMAZINE HCL 50 MG TABLET PO SCH (20:13)
[2019-09-29 00:46] VITALS: BP 111/72
[2019-09-29] MEDS: TraMADol HCL 50 MG TABLET PO PRN ×3 (00:49→20:27)
[2019-09-29] MEDS: DICLOFENAC SODIUM 1% 100 GM GEL [2GM] TP PRN (00:49)
[2019-09-29] MEDS: HALOPERIDOL 5 MG TABLET PO PRN ×2 (00:49→23:38)
[2019-09-29] MEDS: BusPIRone HCL 10 MG TABLET PO SCH ×2 (08:42→17:07)
[2019-09-29 08:43] VITALS: BP 117/70
[2019-09-29] MEDS: NALTREXONE HCL 50 MG TABLET PO SCH (08:43)
[2019-09-29] MEDS: BuPROPion HCL XL 150 MG ER TABLET PO SCH (08:43)
[2019-09-29] MEDS: FOLIC ACID 1 MG TABLET PO SCH (08:43)
[2019-09-29] MEDS: GABAPENTIN 300 MG CAPSULE PO SCH ×2 (08:43→17:07)
[2019-09-29] MEDS: THIAMINE HCL 100 MG TABLET PO SCH (08:43)
[2019-09-29] MEDS: OLANZapine 5 MG TABLET PO SCH ×2 (08:43→17:07)
[2019-09-29] MEDS: MAGNESIUM HYDROXIDE SUSPENSION 30 ML UDCUP PO PRN (08:56)
[2019-09-29 09:33] VITALS: BP 117/70
[2019-09-29] MEDS: SUMAtriptan SUCCINATE 25 MG TABLET PO PRN (10:21)
[2019-09-29 17:00] VITALS: BP 119/81
[2019-09-29] MEDS: DOCUSATE SODIUM 100 MG CAPSULE PO PRN (18:30)
[2019-09-29] MEDS: ChlorproMAZINE HCL 50 MG TABLET PO SCH (20:27)
[2019-09-29 20:29] VITALS: BP 112/74
[2019-09-30] MEDS: OLANZapine 5 MG TABLET PO SCH ×2 (08:16→16:59)
[2019-09-30] MEDS: BuPROPion HCL XL 150 MG ER TABLET PO SCH (08:16)
[2019-09-30] MEDS: THIAMINE HCL 100 MG TABLET PO SCH (08:16)
[2019-09-30] MEDS: FOLIC ACID 1 MG TABLET PO SCH (08:16)
[2019-09-30] MEDS: BusPIRone HCL 10 MG TABLET PO SCH ×2 (08:16→17:00)
[2019-09-30] MEDS: NALTREXONE HCL 50 MG TABLET PO SCH (08:16)
[2019-09-30] MEDS: GABAPENTIN 300 MG CAPSULE PO SCH ×2 (08:16→17:00)
[2019-09-30] MEDS: MAGNESIUM HYDROXIDE SUSPENSION 30 ML UDCUP PO PRN (08:17)
[2019-09-30 08:18] VITALS: BP 129/72
[2019-09-30] MEDS ORDERED: BISACODYL 10 MG RECTAL RECTAL SUPPOSITORY PR PRN (09:45)
[2019-09-30] MEDS: SUMAtriptan SUCCINATE 25 MG TABLET PO PRN (16:59)
[2019-09-30 17:02] VITALS: BP 119/73
[2019-09-30] MEDS: ChlorproMAZINE HCL 50 MG TABLET PO SCH (20:28)
[2019-09-30] MEDS: DICLOFENAC SODIUM 1% 100 GM GEL [2GM] TP PRN (22:12)
[2019-09-30 22:19] VITALS: BP 114/65
[2019-09-30] MEDS: TraMADol HCL 50 MG TABLET PO PRN (22:25)
[2019-10-01 00:11] VITALS: BP 99/67
[2019-10-01] MEDS: HALOPERIDOL 5 MG TABLET PO PRN ×3 (00:12→21:42)
[2019-10-01] MEDS: GuaiFENesin/D-METHORPHAN [SUGAR-FREE] 200-20MG/10 ML SYRUP UDCUP PO PRN (02:59)
[2019-10-01] MEDS: BusPIRone HCL 10 MG TABLET PO SCH ×2 (07:58→16:34)
[2019-10-01] MEDS: BuPROPion HCL XL 150 MG ER TABLET PO SCH (07:58)
[2019-10-01] MEDS: THIAMINE HCL 100 MG TABLET PO SCH (07:58)
[2019-10-01] MEDS: NALTREXONE HCL 50 MG TABLET PO SCH (07:58)
[2019-10-01] MEDS: FOLIC ACID 1 MG TABLET PO SCH (07:58)
[2019-10-01] MEDS: OLANZapine 5 MG TABLET PO SCH ×2 (07:58→16:34)
[2019-10-01] MEDS: GABAPENTIN 300 MG CAPSULE PO SCH ×2 (07:58→16:34)
[2019-10-01] MEDS: TraMADol HCL 50 MG TABLET PO PRN ×2 (08:55→16:00)
[2019-10-01 08:56] VITALS: BP 118/86
[2019-10-01] MEDS: CYCLOBENZAPRINE HCL 10 MG TABLET PO PRN (08:56)
[2019-10-01] MEDS: DOCUSATE SODIUM 100 MG CAPSULE PO PRN (08:58)
[2019-10-01] MEDS: MAGNESIUM HYDROXIDE SUSPENSION 30 ML UDCUP PO PRN (08:59)
[2019-10-01 09:56] VITALS: BP 111/82
[2019-10-01 16:00] VITALS: BP 118/74
[2019-10-01] MEDS ORDERED: DICLOFENAC SODIUM 1% 100 GM GEL [2GM] TP PRN (18:00)
[2019-10-01] MEDS: ChlorproMAZINE HCL 50 MG TABLET PO SCH (20:13)
[2019-10-02] MEDS: TraMADol HCL 50 MG TABLET PO PRN (00:54)
[2019-10-02] MEDS: GuaiFENesin/D-METHORPHAN [SUGAR-FREE] 200-20MG/10 ML SYRUP UDCUP PO PRN (00:55)
[2019-10-02 01:01] VITALS: BP 105/70
[2019-10-02] MEDS: BusPIRone HCL 10 MG TABLET PO SCH (08:20)
[2019-10-02] MEDS: GABAPENTIN 300 MG CAPSULE PO SCH (08:20)
[2019-10-02] MEDS: THIAMINE HCL 100 MG TABLET PO SCH (08:20)
[2019-10-02] MEDS: BuPROPion HCL XL 150 MG ER TABLET PO SCH (08:20)
[2019-10-02] MEDS: OLANZapine 5 MG TABLET PO SCH (08:20)
[2019-10-02] MEDS: FOLIC ACID 1 MG TABLET PO SCH (08:20)
[2019-10-02] MEDS: NALTREXONE HCL 50 MG TABLET PO SCH (08:20)
[2019-10-02 08:24] VITALS: BP 100/56
[2019-10-02] MEDS: SUMAtriptan SUCCINATE 25 MG TABLET PO PRN (10:14)
[2019-10-02] MEDS: MAGNESIUM HYDROXIDE SUSPENSION 30 ML UDCUP PO PRN (10:14)
[2019-10-02] MEDS: CYCLOBENZAPRINE HCL 10 MG TABLET PO PRN (10:14)
[2019-10-02] MEDS ORDERED: CHLO50I IM (10:21)
[2019-10-02] MEDS ORDERED: CHLO10TA9 PO (10:22)
== END 2019-10-02 11:30 | disposition home or self-care (01) | DRG 750 ==
LOC: EDUNIT# 17:01 → EMS 17:05 → 3EC 23:30
PROVIDERS: ADMIT Psychiatry & Neurology Psychiatry; ATTEND Psychiatry & Neurology Psychiatry
DX: F25.1 Schizoaffective disorder, depressive type (principal); E11.9 Type 2 diabetes mellitus without complications; R45.851 Suicidal ideations; E03.9 Hypothyroidism, unspecified; I10 Essential (primary) hypertension; G47.33 Obstructive sleep apnea (adult) (pediatric); F41.9 Anxiety disorder, unspecified; F15.10 Other stimulant abuse, uncomplicated; F10.10 Alcohol abuse, uncomplicated; E78.5 Hyperlipidemia, unspecified; K59.00 Constipation, unspecified; Y90.7 Blood alcohol level of 200-239 mg/100 ml; Z59.0 Homelessness; Z79.899 Other long term (current) drug therapy; Z90.710 Acquired absence of both cervix and uterus
CPT/HCPCS: 70450; 83036; 84443; 87081; 87110; 87491; 94660; G0480

== ENCOUNTER 2024-01-06 09:40 | Inpatient (IN) | payer MEDICAID, OTHER ==
[~2024-01-06] VITALS: Ht 160 cm; Wt 85.9 kg
[~2024-01-06 09:40] MED LIST changes: +BUPR-50 PO; -BUPR-93 PO; +CHLO10TA9 PO; +GABA-1181 PO; -GABA-531 PO; -OLAN5TAB2 PO; +OLAN5TAB52 PO
[2024-01-06 10:22] LABS: BASOPHILS % (AUTO) 0.4 % (0.0-2.0); EOSINOPHILS % (AUTO) 0.1 % (1.0-6.0); HEMATOCRIT 38.6 % (36-46); HEMOGLOBIN 12.2 g/dL (12.0-16.0); LYMPHOCYTES # (AUTO) 0.8 K/uL (1.0-4.8); LYMPHOCYTES % (AUTO) 12.6 % (22.0-44.0); MEAN CORPUSCULAR HEMOGLOBIN 26.3 pg (26.0-34.0); MEAN CORPUSCULAR HGB CONC 31.6 G/dL (31.0-37.0); MEAN CORPUSCULAR VOLUME 83 fL (80-100); MONOCYTES # (AUTO) 0.7 K/uL (0.1-1.0); MONOCYTES % (AUTO) 11.7 % (2.0-9.0); NEUTROPHILS # (AUTO) 4.6 K/uL (1.8-7.7); NEUTROPHILS % (AUTO) 75.2 % (40.0-70.0); PLATELET COUNT (AUTO) 216 K/uL (150-450); RED BLOOD CELL COUNT(AUTO) 4.63 MIL/uL (4.00-5.20); RED CELL DISTRIBUTION WIDTH 14.9 % (11.5-14.5); WHITE BLOOD COUNT (AUTO) 6.1 K/uL (4.5-11.0)
[2024-01-06 10:38] LABS: ALANINE AMINOTRANSFERASE 109 U/L (12-78); ALCOHOL, BLOOD (SERUM) 355 mg/dL (0-10); ALKALINE PHOSPHATASE 180 U/L (46-116); ANION GAP 17 mmol/L (8-16); ASPARTATE AMINOTRANSFERASE 152 U/L (15-37); BILIRUBIN,TOTAL 1.2 mg/dL (0.1-1.0); CALCIUM, TOTAL 8.3 mg/dL (8.8-10.5); CARBON DIOXIDE 23 mmol/L (22-29); CHLORIDE 89 mmol/L (98-107); CREATININE 0.68 mg/dL (0.60-1.30); GLOMERULAR FILTR. RATE CALC > 60 mL/min (>60); GLUCOSE,RANDOM 215 mg/dL (70-110); SODIUM SERUM 129 mmol/L (136-145); TOTAL PROTEIN, SERUM 7.2 g/dL (6.4-8.2); UREA NITROGEN, BLOOD 8 mg/dL (7-18)
[2024-01-06 10:40] LABS: POTASSIUM 2.7 mmol/L (3.5-5.1)
[2024-01-06] MEDS: ACETAMINOPHEN 500 MG TABLET PO ONE (10:48)
[2024-01-06] MEDS: POTASSIUM CHLORIDE 20 MEQ ER TABLET PO ONE (10:49)
[2024-01-06] MEDS ORDERED: CHLO50TA61 PO (11:58)
[2024-01-06 11:59] LABS: AMPHET/METH SCREEN,URINE NEGATIVE (NEGATIVE); BARBITURATE SCREEN, URINE NEGATIVE (NEGATIVE); BENZODIAZEPINES SCREEN,URINE NEGATIVE (NEGATIVE); CANNABINOID SCREEN,URINE NEGATIVE (NEGATIVE); COCAINE SCREEN,URINE NEGATIVE (NEGATIVE); METHADONE SCREEN, URINE NEGATIVE (NEGATIVE); OPIATE SCREEN,URINE NEGATIVE (NEGATIVE); PHENCYCLIDINE SCREEN,URINE NEGATIVE (NEGATIVE)
[2024-01-06 12:12] LABS: ALCOHOL, URINE DRUG SCREEN POSITIVE (NEGATIVE)
[2024-01-06] MEDS: IBUPROFEN 600 MG TABLET PO ONE (12:19)
[2024-01-06 13:31] LABS: COVID AG,FIA SOURCE NASAL SWAB
[2024-01-06 13:52] LABS: SARS-COV2 (COVID) ANTIGEN,FIA Negative (Negative)
[2024-01-06] MEDS: LORazepam 2 MG TABLET PO PRN (15:47)
[2024-01-06] MEDS: HALOPERIDOL 5 MG TABLET PO PRN (15:47)
[2024-01-07] VITALS (13 sets, daily range): BP systolic 106–158; BP diastolic 57–94; PULSE 77–97; RESP 17–18; TEMP 96.9–98; O2SAT 96–97
[2024-01-07] MEDS: THIAMINE 100 MG TABLET PO SCH (11:51)
[2024-01-07] MEDS: FOLIC ACID 1 MG TABLET PO SCH (11:51)
[2024-01-07] MEDS: MULTIVITAMINS WITH MINERALS, THERAPEUTIC TABLET PO SCH (11:51)
[2024-01-07] MEDS: CYANOCOBALAMIN 1,000 MCG/ML VIAL IM ONE (11:52)
[2024-01-07] MEDS: ChlordiazePOXIDE HCL 25 MG CAPSULE PO SCH (12:14)
[2024-01-07] MEDS ORDERED: CloNIDine HCL 0.1 MG TABLET PO PRN (12:30)
[2024-01-07] MEDS ORDERED: NICOTINE 14 MG/24 HOUR PATCH TD PRN (12:30)
[2024-01-07] MEDS ORDERED: DOCUSATE SODIUM 100 MG CAPSULE PO PRN (12:30)
[2024-01-07] MEDS ORDERED: ONDANSETRON HCL 4 MG TABLET PO PRN (12:30)
[2024-01-07] MEDS ORDERED: GuaiFENesin/D-METHORPHAN [SUGAR-FREE] 200-20MG/10 ML SYRUP UDCUP PO PRN (12:30)
[2024-01-07] MEDS ORDERED: MAGNESIUM HYDROXIDE SUSPENSION 30 ML UDCUP PO PRN (12:30)
[2024-01-07] MEDS ORDERED: ALBUTEROL SULFATE HFA 90 MCG/PUFF 8 GM INHALER IH PRN (12:30)
[2024-01-07] MEDS ORDERED: LOPERAMIDE HCL 2 MG CAPSULE PO PRN (12:30)
[2024-01-07] MEDS ORDERED: PETROLATUM,WHITE 28 GM JELLY TP PRN (12:30)
[2024-01-07] MEDS: ChlordiazePOXIDE HCL 25 MG CAPSULE PO PRN (13:11)
[2024-01-07] MEDS: IBUPROFEN 400 MG TABLET PO PRN (13:14)
[2024-01-07] MEDS: GABAPENTIN 300 MG CAPSULE PO SCH (16:26)
[2024-01-07] MEDS: BusPIRone HCL 10 MG TABLET PO SCH (20:15)
[2024-01-07] MEDS: TraZODone HCL 50 MG TABLET PO SCH (20:15)
[2024-01-07] MEDS: ZOLPIDEM TARTRATE 10 MG TABLET PO PRN (21:32)
[2024-01-08] VITALS (10 sets, daily range): BP systolic 117–139; BP diastolic 67–77; PULSE 66–86; RESP 18–20; TEMP 97–98.2; O2SAT 97–98
[2024-01-08] MEDS ORDERED: ChlordiazePOXIDE HCL 25 MG CAPSULE PO PRN (07:00)
[2024-01-08 08:27] LABS: CHOL/HDL RATIO 1.6 (3.9-5.7); THYROID STIMULATING HORMONE 1.42 uIU/mL (0.36-3.74)
[2024-01-08] MEDS: OLANZapine 5 MG TABLET PO SCH (09:45)
[2024-01-08] MEDS: BuPROPion HCL XL 150 MG ER TABLET PO SCH (09:46)
[2024-01-08] MEDS: ACETAMINOPHEN 325 MG TABLET PO PRN (21:33)
[2024-01-08] MEDS: MAG HYDROX/ALUMINUM HYD/SIMETH ES 30 ML SUSPENSION UDCUP PO PRN (21:45)
[2024-01-08] MEDS: ATORVASTATIN CALCIUM 20 MG TABLET PO SCH (22:02)
[2024-01-09 08:00] VITALS: BP 117/77; PULSE 78; RESP 20; TEMP 96.8
[2024-01-09] MEDS: AmLODIPine BESYLATE 2.5 MG TABLET PO SCH (09:00)
[2024-01-09 22:36] VITALS: BP 131/81; PULSE 92; RESP 18; TEMP 97
[2024-01-10] MEDS ORDERED: ChlordiazePOXIDE HCL 10 MG CAPSULE PO PRN (07:00)
[2024-01-10 08:45] VITALS: BP 125/83; PULSE 82; RESP 18; TEMP 97.6
[2024-01-10] MEDS: ChlordiazePOXIDE HCL 10 MG CAPSULE PO SCH (10:00)
[2024-01-10 22:21] VITALS: BP 105/57; PULSE 72; RESP 18; TEMP 97.3
[2024-01-11 06:42] VITALS: BP 119/77; PULSE 73; RESP 18; TEMP 98.1
[2024-01-11] MEDS ORDERED: ChlordiazePOXIDE HCL 10 MG CAPSULE PO PRN (07:00)
[2024-01-11 11:02] VITALS: BP 119/60; PULSE 72; RESP 16; TEMP 96.6
[2024-01-12 00:30] VITALS: RESP 18; TEMP 97.6
[2024-01-12 08:19] VITALS: BP 113/57; PULSE 81; RESP 18; TEMP 97.8
[2024-01-12 16:20] VITALS: BP 125/67; PULSE 88; RESP 16; TEMP 98.2
[2024-01-12 17:20] VITALS: BP 130/86; PULSE 80; RESP 18; TEMP 98.6
[2024-01-12] MEDS: TraZODone HCL 100 MG TABLET PO SCH (21:19)
[2024-01-12 21:28] VITALS: BP 122/67; PULSE 82; RESP 18; TEMP 98.1
[2024-01-13] MEDS ORDERED: OLAN5TAB52 PO (09:13)
[2024-01-13] MEDS ORDERED: THIA100T80 PO (09:13)
[2024-01-13] MEDS ORDERED: FOLI-130 PO (09:13)
[2024-01-13] MEDS ORDERED: GABA-1181 PO (09:13)
[2024-01-13] MEDS ORDERED: BUPR-49 PO (09:13)
[2024-01-13] MEDS ORDERED: BUSP10TA23 PO (09:13)
[2024-01-13] MEDS ORDERED: TRAZ-257 PO (09:13)
[2024-01-13] MEDS ORDERED: ATOR20TA PO (10:05)
[2024-01-13] MEDS ORDERED: AMLO2.5T96 PO ×2 (10:06→10:07)
[2024-01-13 11:17] VITALS: BP 96/55; PULSE 78; RESP 20; TEMP 97
== END 2024-01-13 10:30 | disposition home or self-care (01) | DRG 750 ==
LOC: EMS 09:40 → 3EI 01-07 02:09
PROVIDERS: ADMIT Psychiatry & Neurology Child & Adolescent Psychiatry; ATTEND Psychiatry & Neurology Child & Adolescent Psychiatry
PROC: GZHZZZZ Group Psychotherapy (ICD-10-PCS; principal; 2024-01-08)
PROC: GZ51ZZZ Individual Psychotherapy, Behavioral (ICD-10-PCS; 2024-01-08)
DX: F25.1 Schizoaffective disorder, depressive type (principal); E87.1 Hypo-osmolality and hyponatremia; R45.851 Suicidal ideations; E03.9 Hypothyroidism, unspecified; E11.9 Type 2 diabetes mellitus without complications; Z20.822 Contact with and (suspected) exposure to COVID-19; E78.5 Hyperlipidemia, unspecified; E87.6 Hypokalemia; F10.129 Alcohol abuse with intoxication, unspecified; G47.30 Sleep apnea, unspecified; I10 Essential (primary) hypertension; Y90.8 Blood alcohol level of 240 mg/100 ml or more; Z85.42 Personal history of malignant neoplasm of other parts of uterus; Z90.710 Acquired absence of both cervix and uterus
CPT/HCPCS: 70450; 80053; 80061; 80307; 83036; 84132; 84443; 85025; 94660; 99285; G0480; J3420